=== PATIENT | male | born 1970 | race Caucasian/White ===

== ENCOUNTER → 2021-08-29 | Outpatient (CLI) | payer SELFPAY ==
--- NOTE | 2021-08-29 09:37 | Diagnostic Imaging Report ---
EXAMINATION: CT calcium scoring without contrast. TECHNIQUE: Multiple contiguous axial images were obtained through the chest without the use of intravenous contrast for purposes of calcium scoring. All CT scans use one or more of the following dose optimizing techniques: automated exposure control, MA and/or KvP adjustment based on patient size and exam type or iterative reconstruction. HISTORY: Hypertension COMPARISON: None available. FINDINGS: The calculated coronary artery calcium score is 0. There is no edema or pneumonia. No pleural effusion. No pneumothorax. No suspicious nodules. Heart size is normal. No pericardial effusion. Aorta is normal in caliber. There is no mediastinal lymphadenopathy. Limited views of the upper abdomen are unremarkable. There are no suspicious osseus lesions. IMPRESSION: 1. Calculated coronary artery calcium score of 0. Dictated by: Dictated on workstation # [id number]
== END ==
LOC: RAD FS 08:45
PROVIDERS: ATTEND Family Medicine
DX: I10 Essential (primary) hypertension (principal)
CPT/HCPCS: 75571